=== PATIENT | male | born 1975 | race Caucasian/White ===

== ENCOUNTER 2021-10-28 00:55 | Day surgery (SDC) | payer OTHER, SELFPAY ==
[2021-10-08 10:17] VITALS: BMI 31.7
[2021-10-28 10:13] VITALS: BP 123/94; PULSE 77; RESP 18; TEMP 36.4; O2SAT 99
--- NOTE | 2021-10-28 10:26 | WPDHPUPDATE1 ---
History and Physical Update Update Date/Time: 10/28/21 10:26 History and Physical has been reviewed, including an updated exam of the patient. There are NO changes in the patient's condition. Risks, benefits, and alternatives have been discussed and questions answered. Patient agrees to proceed with procedure.
[2021-10-28] MEDS: LACTATED RINGERS 1,000 ML 150 ML IV CONT (10:31)
--- NOTE | 2021-10-28 10:48 | WPDANESEPPF ---
Anes - Initial Pre Proc Eval Procedure: Operation Date: 10/28/21 11:30 Proposed Procedures p Esophagogastroduodenoscopy - Bro Salamanca MD Date/Time: 10/28/21 10:48 Surgeon: Bro Salamanca MD Pre Op Diagnosis: gerd and abnormal xray Patient Data Age: 46 Gender: M Height: 1.89 m Weight: 114.8 kg Last Vital Signs Temp 97.6 F 10/28/21 10:13 Pulse 77 10/28/21 10:13 Resp 18 10/28/21 10:13 BP 123/94 H 10/28/21 10:13 Pulse Ox 99 10/28/21 10:13 O2 Del Method Room Air 10/28/21 10:13 Allergies Allergy/AdvReac Type Severity Reaction Status Date / Time No Known Allergies Allergy Verified 10/28/21 10:12 Home Medications Medication Instructions Recorded Confirmed Type B-complex with vitamin C 1 tablet PO DAILY 09/29/21 10/28/21 History cetirizine 10 mg capsule (Zyrtec) 10 mg PO DAILY PRN Allergy Symptoms 09/29/21 10/28/21 History jazmin seed oil-omega 3-6-9 1,000 mg 1 cap PO DAILY 09/29/21 10/28/21 History (600 mg-150 mg-50mg) capsule cholecalciferol (vitamin D3) 50 50 mcg PO DAILY 09/29/21 10/28/21 History mcg (2,000 unit) capsule escitalopram oxalate 20 mg tablet 20 mg PO DAILY 09/29/21 10/28/21 History (Lexapro) famotidine 20 mg tablet (Pepcid) 20 mg PO BID 1 month #60 tabs 09/29/21 10/28/21 Rx fenofibric acid (choline) 135 mg 135 mg PO DAILY 09/29/21 10/28/21 History capsule,delayed release fluticasone furoate 27.5 1 spray intranasal DAILY 09/29/21 10/28/21 History mcg/actuation nasal spray,suspension (Flonase Sensimist) hydrocortisone 1 % topical cream 1 applic topical TID PRN Itching 09/29/21 10/28/21 History (Anti-Itch (hydrocortisone)) lansoprazole 30 mg delayed 30 mg PO DAILY 05/11/22 06/09/22 History release,disintegrating tablet (Prevacid SoluTab) Patient hx anesthesia problems: none Family hx anesthesia problems: none Results Review: All pre-operative results and documents have been reviewed as part of the pre-operative evaluation. [facility] Past Medical History Medical History (Updated 09/29/21 @ 13:09 by Keisha Tineo CMA) Allergies Anxiety High triglycerides Family History Family History (Updated 09/29/21 @ 13:10 by Keisha Tineo CMA) Mother Asthma Diabetes mellitus Hypertension Depression Social History Social History (Updated 09/29/21 @ 13:11 by Keisha Tineo CMA) Smoking status: Never smoker Alcohol intake: never Substance use: never Substance use type: does not use Living arrangements: with family Spiritual care concerns: No Anes - Eval Final PreProcedure Day of Procedure 10/28/21 10:48 Patient weight: obese Heart: regular rate and rhythm Lungs: clear to auscultation Airway: Mallampati scale class II Neurological: alert and oriented Last oral intake: >/= 8 hours ASA classification: II Emergent: no Anesthetic plan: proceed Results Review: All pre-operative results and documents have been reviewed as part of the pre-operative evaluation. Informed Consent: The patient's anesthetic plan and its attendant risks and benefits were discussed with the patient/family/POA. Questions were solicited and answers provided to the satisfaction of the patient/family/POA.
[2021-10-28 11:22] VITALS: BP 121/73; PULSE 69; RESP 18; O2SAT 99
[2021-10-28 11:32] VITALS: BP 120/74; PULSE 66; RESP 21; O2SAT 98
[2021-10-28 11:42] VITALS: BP 124/82; PULSE 62; RESP 22; O2SAT 97
== END 2021-10-28 11:54 | disposition home or self-care (01) ==
PROVIDERS: PCP Family Medicine; Visit Provider Internal Medicine Gastroenterology
PROC: 0DJ08ZZ Inspection of Upper Intestinal Tract, Via Natural or Artificial Opening Endoscopic (ICD-10-PCS; CPT 43235; principal; 2021-10-28 11:30)
DX: K21.9 Gastro-esophageal reflux disease without esophagitis (principal); K31.7 Polyp of stomach and duodenum; F41.9 Anxiety disorder, unspecified; E78.1 Pure hyperglyceridemia; E66.9 Obesity, unspecified; Z68.32 Body mass index [BMI] 32.0-32.9, adult
CPT/HCPCS: 43251; 87081; 88305; J2704; J7120

== ENCOUNTER 2023-02-02 01:12 | Day surgery (SDC) | payer OTHER, SELFPAY ==
[2023-01-26 15:15] VITALS: BMI 32.1
[2023-02-02 07:02] VITALS: BP 133/90; PULSE 71; RESP 18; TEMP 36.2; O2SAT 98
[2023-02-02] MEDS: LACTATED RINGERS 1,000 ML 150 ML IV CONT (07:06)
--- NOTE | 2023-02-02 07:19 | WPDANESEPPF ---
Anes - Initial Pre Proc Eval Procedure: Operation Date: 02/02/23 08:30 Proposed Procedures p Screening Colonoscopy - Bro Salamanca MD Date/Time: 02/02/23 07:19 Surgeon: Bro Salamanca MD Pre Op Diagnosis: neoplasm screening Patient Data Age: 47 Gender: M Height: 1.88 m Weight: 108.7 kg Last Vital Signs Temp 36.2 C L 02/02/23 07:02 Pulse 71 02/02/23 07:02 Resp 18 02/02/23 07:02 BP 133/90 02/02/23 07:02 Pulse Ox 98 02/02/23 07:02 O2 Del Method Room Air 02/02/23 07:02 Allergies Allergy/AdvReac Type Severity Reaction Status Date / Time No Known Allergies Allergy Verified 02/02/23 07:00 Home Medications Medication Instructions Recorded Confirmed Type B-complex with vitamin C 1 tablet PO DAILY 09/29/21 02/02/23 History cetirizine 10 mg capsule (Zyrtec) 10 mg PO DAILY PRN Allergy Symptoms 09/29/21 02/02/23 History cholecalciferol (vitamin D3) 50 50 mcg PO DAILY 09/29/21 02/02/23 History mcg (2,000 unit) capsule escitalopram oxalate 20 mg tablet 20 mg PO DAILY 09/29/21 02/02/23 History (Lexapro) fenofibric acid (choline) 135 mg 135 mg PO DAILY 09/29/21 02/02/23 History capsule,delayed release fluticasone furoate 27.5 1 spray intranasal DAILY PRN 09/29/21 02/02/23 History mcg/actuation nasal Allergy Symptoms spray,suspension (Flonase Sensimist) hydrocortisone 1 % topical cream 1 applic topical TID PRN Itching 09/29/21 02/02/23 History (Anti-Itch (hydrocortisone)) lansoprazole 30 mg delayed 30 mg PO DAILY 09/29/21 02/02/23 History release,disintegrating tablet (Prevacid SoluTab) famotidine 20 mg tablet 20 mg PO BID 01/26/23 02/02/23 History omega-3 fatty acids 1,000 mg PO DAILY 01/26/23 02/02/23 History terbinafine HCl 250 mg tablet 250 mg PO DAILY 01/26/23 02/02/23 History Patient hx anesthesia problems: none Family hx anesthesia problems: none Results Review: All pre-operative results and documents have been reviewed as part of the pre-operative evaluation. [facility] Past Medical History Medical History Allergies Anxiety High triglycerides Surgical History Surgical History (Updated 02/02/23 @ 07:19 by Alfredo Redmond MD) History of esophagogastroduodenoscopy (EGD) Family History Family History Mother Asthma Diabetes mellitus Hypertension Depression Social History Social History Smoking status: Never smoker Alcohol intake: never Substance use: never Substance use type: does not use Living arrangements: with family Spiritual care concerns: No Anes - Eval Final PreProcedure Day of Procedure 02/02/23 07:19 Patient weight: obese Heart: regular rate and rhythm Lungs: clear to auscultation Airway: Mallampati scale class II Neurological: alert and oriented Last oral intake: >/= 8 hours ASA classification: II Emergent: no Anesthetic plan: proceed Anesthesia type and monitoring: general GIVS and standard monitoring Results Review: All pre-operative results and documents have been reviewed as part of the pre-operative evaluation. Informed Consent: The patient's anesthetic plan and its attendant risks and benefits were discussed with the patient/family/POA. Questions were solicited and answers provided to the satisfaction of the patient/family/POA.
--- NOTE | 2023-02-02 07:32 | PM.HPGS ---
History of Present Illness History of Present Illness Consent: Risks, benefits, and alternatives have been discussed and questions answered. Patient agrees to proceed with procedure. Chief complaint: neoplasm screening Narrative: Casper Bunch is a 47 year old male Presents for screening colonoscopy. Patient's current weight appetite and bowel movements are normal. Patient denies abdominal pain. He is known to have hemorrhoids. He complains of occasional perianal itching. Family history noncontributory. Review of Systems Review of Systems: Review of systems noncontributory. [facility] Past Medical History Medical History (Updated 02/02/23 @ 07:33 by Bro Salamanca MD) Allergies Anxiety High triglycerides Surgical History Surgical History (Updated 02/02/23 @ 07:19 by Alfredo Redmond MD) History of esophagogastroduodenoscopy (EGD) Family History Family History Mother Asthma Diabetes mellitus Hypertension Depression Social History Social History Smoking status: Never smoker Alcohol intake: never Substance use: never Substance use type: does not use Living arrangements: with family Spiritual care concerns: No Meds Home Medications and Allergies Home Medications Medication Instructions Recorded Confirmed Type B-complex with vitamin C 1 tablet PO DAILY 09/29/21 02/02/23 History cetirizine 10 mg capsule (Zyrtec) 10 mg PO DAILY PRN Allergy Symptoms 09/29/21 02/02/23 History cholecalciferol (vitamin D3) 50 50 mcg PO DAILY 09/29/21 02/02/23 History mcg (2,000 unit) capsule escitalopram oxalate 20 mg tablet 20 mg PO DAILY 09/29/21 02/02/23 History (Lexapro) fenofibric acid (choline) 135 mg 135 mg PO DAILY 09/29/21 02/02/23 History capsule,delayed release fluticasone furoate 27.5 1 spray intranasal DAILY PRN 09/29/21 02/02/23 History mcg/actuation nasal Allergy Symptoms spray,suspension (Flonase Sensimist) hydrocortisone 1 % topical cream 1 applic topical TID PRN Itching 09/29/21 02/02/23 History (Anti-Itch (hydrocortisone)) lansoprazole 30 mg delayed 30 mg PO DAILY 09/29/21 02/02/23 History release,disintegrating tablet (Prevacid SoluTab) famotidine 20 mg tablet 20 mg PO BID 01/26/23 02/02/23 History omega-3 fatty acids 1,000 mg PO DAILY 01/26/23 02/02/23 History terbinafine HCl 250 mg tablet 250 mg PO DAILY 01/26/23 02/02/23 History Allergies Allergy/AdvReac Type Severity Reaction Status Date / Time No Known Allergies Allergy Verified 02/02/23 07:00 Vital Signs Vital Signs - 24 hr 02/02/23 07:02 Temperature 97.1 F L Pulse Rate 71 Respiratory Rate 18 Blood Pressure 133/90 Pulse Oximetry 98 Oxygen Delivery Room Air Exam Narrative: Physical exam reveals patient to be alert. Vital signs stable. HEENT exam is unremarkable. Patient is anicteric. Lungs are clear to auscultation and percussion. Heart is without murmur or extra sounds. Abdomen bowel sounds are present soft nontender with no organomegaly. Digital external rectal exam is normal. Assessment and Plan Assessment and plan (1) Encounter for screening colonoscopy: Code(s): Z12.11 - Encounter for screening for malignant neoplasm of colon Status: Acute Assessment and Plan: patient presents for screening colonoscopy. He appears to be at average risk for colon polyps. Further recommendations may be given after endoscopy.
[2023-02-02 08:40] VITALS: BP 111/72; PULSE 72; RESP 13; O2SAT 97
[2023-02-02 08:50] VITALS: BP 107/70; PULSE 65; RESP 17; O2SAT 99
[2023-02-02 09:00] VITALS: BP 121/83; PULSE 65; RESP 15; O2SAT 100
== END 2023-02-02 09:08 | disposition home or self-care (01) ==
PROVIDERS: PCP Family Medicine; Visit Provider Internal Medicine Gastroenterology
PROC: 0DJD8ZZ Inspection of Lower Intestinal Tract, Via Natural or Artificial Opening Endoscopic (ICD-10-PCS; CPT 45378; principal; 2023-02-02 08:30)
DX: Z12.11 Encounter for screening for malignant neoplasm of colon (principal); K64.8 Other hemorrhoids; K57.30 Diverticulosis of large intestine without perforation or abscess without bleeding; E78.1 Pure hyperglyceridemia; F41.9 Anxiety disorder, unspecified; E66.9 Obesity, unspecified; Z68.30 Body mass index [BMI] 30.0-30.9, adult
CPT/HCPCS: 45378; J2704; J7120